=== PATIENT | female | born 1940 | race Caucasian/White ===

== ENCOUNTER 2016-04-29 08:21 | Observation (INO) | payer MEDICARE, BC ==
--- NOTE | ~2016-04-29 | HP ---
Unit #: [id number] #: [id number] Patient: MARIA A GRIFFIN [id number] [facility]. [place], [place] [address] [id number] I MR#: [id number] NAME: MARIA A GRIFFIN. ROOM: 56336 Age: 75 Sex: F Admission Date: 04/29/2016 : 1940 Attending Physician: Lisa Campbell M.D. Primary Care Physician: No Primary Care Physician HISTORY AND PHYSICAL CHIEF COMPLAINT Passing blood. HISTORY OF PRESENT ILLNESS The patient is a 75-year-old female with past medical history of coronary artery disease, hypertension, hyperlipidemia, paroxysmal atrial fibrillation, COPD, lung cancer, hypothyroidism and GERD who presented to the emergency department for evaluation of the above. The patient states that she was in her usual state of health until the morning of admission when she started passing blood. She states that there was no stool. She states that she has had 4 bouts of passing only blood. She also has developed abdominal pain during the course of her evaluation in the emergency department. The pain is in her upper abdomen. She describes it as "dull." It radiates to her back. There are no exacerbating or alleviating factors. She denies any similar pain. In the emergency department initial pulse and blood pressure were 84 and 122/102 respectively. Hemoglobin is 13.1. She was started on octreotide drip. She was also given 80 mg of Protonix followed by a Protonix drip at 8 mg per hour. She is being admitted to [facility] for evaluation and further treatment. PAST MEDICAL HISTORY 1. Admission to [facility] October 13 through October 15, 2012 for chest pain. 2. Coronary artery disease status post coronary artery bypass grafting, followed by Dr. Perez. 3. Hypertension. 4. Hyperlipidemia. 5. History of lung cancer status post radiation. 6. Hypothyroidism. 7. GERD. 8. Echocardiogram March 23, 2012 showed an ejection fraction of 45% to 50% with moderate mitral regurgitation and moderate tricuspid regurgitation. Moderate septal hypokinesis was also noted. This is per the H and P from October 13, 2012. PAST SURGICAL HISTORY 1. Cardiac catheterization October 14, 2012 showed abnormal right-sided pressures with elevated pressures consistent with at least moderate pulmonary hypertension. Ejection fraction of 50% to 55%. Hemodynamically significant single-vessel coronary artery disease with total occlusion of the LAD at the ostium. Internal mammary Unit #: [id number] #: [id number] Patient: MARIA A GRIFFIN artery graft was widely patent. 2. Hysterectomy. 3. Coronary artery bypass grafting. 4. Knee surgery. 5. Cholecystectomy. 6. 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 7. Colonoscopy (January 06, 2013) showed internal and external hemorrhoids; otherwise, no abnormalities to the cecum. SOCIAL HISTORY The patient lives with her . She is a former smoker. There is no alcohol. FAMILY HISTORY Notable for her mother having coronary artery disease. Her father had colon cancer. ALLERGIES Eliquis. HOME MEDICATIONS 1. Aspirin 81 mg daily. 2. Calcium 1,200 mg b.i.d. 3. Amiodarone 100 mg daily. 4. Coreg 3.125 mg daily. 5. Levothyroxine 150 mcg daily. REVIEW OF SYSTEMS A complete review of systems is negative except as indicated in the HPI. The patient states that she has lost 16 pounds over the past 2 months. PHYSICAL EXAMINATION VITAL SIGNS: Temperature is 98.1, pulse 84, respirations 16, blood pressure 122/102, oxygen saturation 100% on room air. GENERAL: The patient is a female who is awake and alert in no acute distress. HEENT: The head is atraumatic. Mucous membranes are moist. NECK: Supple. Trachea is midline. CARDIOVASCULAR: Regular rate and rhythm. RESPIRATORY: Lungs are clear to auscultation bilaterally with no increased work of breathing. ABDOMEN: Soft, nontender with bowel sounds present in all 4 quadrants. EXTREMITIES: Extremities are nontender with no pedal edema. NEUROLOGIC: The patient is awake and alert. She follows commands. PSYCHIATRIC: Mood and affect are normal. The patient is cooperative. SKIN: Skin of examined areas is warm and dry. DIAGNOSTIC TESTS CARDIOVASCULAR: EKG shows normal sinus rhythm with a rate of 66 beats per minute. LABORATORY: Complete blood count notable for hemoglobin of 13.1, hematocrit 40.6. INR is 1.1. Comprehensive metabolic panel is notable for calcium of 8.3. ASSESSMENT 1. The patient is a 75-year-old female with GI bleed. The patient is Unit #: [id number] #: [id number] Patient: MARIA A GRIFFIN currently on a Protonix drip. I have discontinued the octreotide drip. Hemoglobin is 13.1. 2. Epigastric pain. 3. History of coronary artery disease. 4. Hypertension. 5. Hyperlipidemia. 6. Paroxysmal atrial fibrillation, maintained on Coreg and amiodarone. 7. COPD. 8. History of lung cancer status post radiation. 9. Hypothyroidism. 10. GERD. 11. Former smoker. PLAN 1. Admit to intermediate level for observation. 2. NPO for possible endoscopy. 3. Continue Protonix drip at 8 mg per hour. 4. Hemoglobin and hematocrit q.6 hours. Will plan to transfuse for hemoglobin less than 8 due to history of coronary artery disease. 5. Serial cardiac enzymes. 6. Hold aspirin. 7. SCDs. 8. Zofran p.r.n. 9. Morphine p.r.n. 10. Consult Dr. Gambino regarding GI bleed. 11. Repeat labs in the morning. 12. SCDs for DVT prophylaxis. 13. Additional workup and consultants based on above. Dictated by Alan Wong/sabino TD: 04/29/2016 12:04 JOB #: [id number] HISTORY AND PHYSICAL X Lisa Campbell MD HISTORY AND PHYSICAL
--- NOTE | ~2016-04-29 | CO ---
Unit #: [id number] #: [id number] Patient: MARIA A GRIFFIN [id number] [address] [id number] E MR#: [id number] NAME: MARIA A GRIFFIN. ROOM: Age: 75 Sex: F Admission Date: 04/29/2016 : 1940 Attending Physician: Lissett Garcia M.D. Primary Care Physician: No Primary Care Physician CONSULTATION REPORT REASON FOR CONSULTATION GI bleed. HISTORY OF PRESENT ILLNESS The patient states she was in her usual state of health until around 5:30 this morning when she was lying on her couch and felt like she was having diarrhea. She subsequently got up to use the restroom and "filled the bowl with" blood and blood clots and subsequently called her daughter to bring her to the ER. Upon workup in the ER she was started on octreotide and Protonix drips. Hemoglobin was found to be normal at 13. The patient does report some nausea. Denies vomiting. Denies abdominal pain. Denies any recent sick contacts. PAST MEDICAL HISTORY 1. Coronary artery disease status post CABG in 2002. 2. 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 3. Asthma. 4. GERD. 5. Hypothyroidism. 6. Hysterectomy. 7. Foot surgery. 8. Back surgery x3. 9. Cholecystectomy. 10. Colonoscopy in December 2012, which showed both internal and external hemorrhoids; otherwise, was normal. 11. EGD in July of 2013, which showed [id number] chronic erosive gastritis. ALLERGIES Eliquis. HOME MEDICATIONS Coreg, amiodarone, levothyroxine, baby aspirin, calcium with vitamin D. SOCIAL HISTORY The patient is a reformed smoker. Denies alcohol or illicit drugs. Lives at home with her who actually recently suffered stroke, for which she is his primary caregiver. REVIEW OF SYSTEMS A complete 10-point review of systems was completed and negative except as mentioned in the HPI. Unit #: [id number] #: [id number] Patient: MARIA A GRIFFIN PHYSICAL EXAMINATION GENERAL: The patient is a pleasant 75-year-old female currently in no acute distress. VITAL SIGNS: Temperature is 97.4, pulse 66, respirations 16, blood pressure 97/67. HEENT: PERRLA. NECK: Supple. CARDIAC: S1, S2. LUNGS: Clear to auscultation. ABDOMEN: Soft, rounded, nontender, nondistended. Positive bowel sounds. NEUROLOGIC: The patient is alert, awake and oriented x3. DIAGNOSTIC STUDIES LABORATORY DATA: Chemistry is completely normal. White count 6.9, hemoglobin 13.1, hematocrit 40.6, platelets 246. ASSESSMENT AND PLAN 1. GI bleed. Will continue Protonix drip for now. Watch hemoglobin and hematocrit and transfuse as needed. Will plan EGD today to rule out peptic ulcer disease versus AVM versus others. Will likely need colonoscopy in the coming days. Further recommendations to follow. 2. History of coronary artery disease status post CABG in 2002. 3. History of lung cancer status post chemotherapy and radiation. Thank you for this interesting consult. We will continue to follow along. Dictated by... Wilbert Mora/sabino TD: 04/29/2016 10:43 JOB #: [id number] CONSULTATION REPORT X X CONSULTATION REPORT
--- NOTE | ~2016-04-29 | OR ---
Unit #: [id number] #: [id number] Patient: MARIA A GRIFFIN [id number] [facility]. [place], [place] [address] [id number] Sonu MR#: [id number] NAME: MARIA A GRIFFIN ROOM: [facility] Date of Procedure: 04/30/2016 Admission Date: 04/29/2016 Surgeon: Edy Gambino M.D. : 1940 Attending Physician: Iliana Marie M.D. OPERATIVE REPORT JOB NOTE: CC: PRIMARY CARE PHYSICIAN. PROCEDURE PERFORMED Colonoscopy with argon plasma coagulation of arteriovenous malformations in cecum. INDICATIONS FOR PROCEDURE The patient with severe GI bleeding and anemia of acute blood loss, undergoing colonoscopy for evaluation. MEDICATIONS Monitored anesthesia. POSTOPERATIVE FINDINGS 1. Multiple at least 5 AVMs seen in the cecum, cauterized using APC. There was active oozing seen from these. 2. A few small polyps, 1 in transverse, 3 in rectum were seen. There were all about 5 mm, they were left alone at this time. 3. Few diverticula were seen. 4. No internal hemorrhoids. PLAN Watch for any further bleeding. Watch H and H. continue with supportive care. DESCRIPTION OF PROCEDURE The patient was explained of the procedure, risks, and benefits along with risks and benefits of anesthesia. She was brought to the endoscopy room. Rectal exam was done, which was normal. Colonoscope was lubricated, passed up the rectum, advanced under direct vision all the way to the cecum. There were pools of blood in different places. After lavaging and extensive cleaning, several small AVM seen in the cecum. They started oozing while we were there. They were cauterized using APC. No active bleeding was seen after the cauterization. Scope was gently pulled out. Several small polyps were seen as described. There were not taken out at this time, given the active bleeding. I retroflexed in the rectum, no hemorrhoids noted. Scope was gently pulled out. She tolerated it well. No major complications were seen. Dictated by... Edy Gambino M.D. Unit #: [id number] #: [id number] Patient: MARIA A GRIFFIN TERRANCE/leighton TD: 04/30/2016 09:45 JOB #: [id number] OPERATIVE REPORT X Edy Gambino MD PROCEDURE OPERATIVE NOTE
--- NOTE | ~2016-04-29 | DS ---
Unit #: [id number] #: [id number] Patient: AMRIA A GRIFFIN [id number] [place], [place] [address] [id number] I MR#: [id number] NAME: MARIA A GRIFFIN. ROOM: [facility] Age: 75 Sex: F Admission Date: 04/29/2016 : 1940 Discharge Date: 05/01/2016 Attending Physician: Iliana Marie M.D. Primary Care Physician: [place] Primary Care Physician DISCHARGE SUMMARY DIAGNOSIS ON ADMISSION Gastrointestinal bleeding. DIAGNOSES ON DISCHARGE 1. Acute lower gastrointestinal bleeding, secondary to arteriovenous malformation, resolved. 2. 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 3. Colonic polyps. 4. Anemia, secondary to acute blood loss. 5. Hypertension. 6. Chronic obstructive pulmonary disease. 7. Hypothyroidism. 8. Paroxysmal atrial fibrillation. 9. Gastroesophageal reflux disease. 10. History of lung cancer, status post radiation. CONSULTATION Dr. Gambino in GI consultation. PROCEDURE The patient had a colonoscopy done which revealed multiple, at least five, AVMs in cecum which were cauterized. There was active oozing. The patient had a few small polyps also. There were a few diverticula seen. DIAGNOSTIC STUDIES LABORATORY: The patient's creatinine 0.5, sodium 139, potassium 3.7. WBC 4.9, hemoglobin 8.2, platelet count 178,000. HOSPITAL COURSE A 75-year-old patient was admitted to the hospital with GI bleeding. Details are as per admission H and P. The patient underwent a colonoscopy with findings as above. The patient's bleeding has resolved. The patient is very anxious and wants to go home today. Therefore, we will discharge her with followup with Dr. Gambino on outpatient basis. RECOMMENDATIONS ON DISCHARGE Condition is stable. Activity is as tolerated. MEDICATIONS 1. Tylenol 650 mg p.o. q.6 hours p.r.n. 2. Amiodarone 100 mg p.o. daily. 3. Coreg 3.125 mg p.o. daily. 4. Calcium with vitamin D 500 mg p.o. t.i.d. Unit #: [id number] #: [id number] Patient: MARIA A GRIFFIN 5. Synthroid 150 mcg p.o. daily. 6. Protonix 40 mg p.o. daily. 7. Iron sulfate 324/5 mg p.o. daily with meals. FOLLOWUP 1. The patient is advised to follow up with primary care physician in one week and have a CBC and BMP done. 2. The patient is advised to follow up with Dr. Gambino as recommended in two to three weeks. The plan has been discussed with patient's family as well and they have shown complete understanding. The patient is advised to call primary care physician or go to ER if her bleeding recurs. Dictated by... Alan Kumar/jian TD: 05/01/2016 16:10 JOB #: [id number] DISCHARGE SUMMARY X Iliana Marie MD X DISCHARGE SUMMARY
--- NOTE | ~2016-04-29 | EKG ---
PATIENT: MARIA A GRIFFIN UNIT #: [id number] Ventricular Rate: 66 BPM Atrial Rate: 66 BPM P-R Interval: 162 ms QRS Duration: 126 ms Q-T Interval: 490 ms QTC Calculation(Bezet): 513 ms P Grand Ledge: 69 degrees Calculated R Grand [place]edge: -29 degrees Calculated T Grand Ledge: 29 degrees Diagnosis Line: Normal sinus rhythm Diagnosis Line: Right bundle branch block Diagnosis Line: Moderate voltage criteria for LVH, may be normal Diagnosis Line: variant Diagnosis Line: Abnormal ECG Diagnosis Line: When compared with ECG of 08-FEB-2014 15:48, Diagnosis Line: Premature supraventricular complexes are no longer Diagnosis Line: Present Diagnosis Line: Vent. rate has decreased BY 37 BPM Diagnosis Line: T wave inversion no longer evident in Lateral Diagnosis Line: leads Diagnosis Line: Confirmed by ADELE ROLAND MD ([id number]) on 04/30/2016 Diagnosis Line: 7:29:49 PM INTERPRETING MD: ASUNCION CALLE
[~2016-04-29 08:21] MED LIST: ACETAMINOPHEN PO; ACID REDUCER OTC; ACID REDUCER20 MG PO; ASPIRIN PO; ASPIRIN81 M2 PO; ATENOLOL; CALCIUM + D 6001 TA1 PO; CALCIUM 500 + D1 TAB PO; CARVEDILOL12.5 MG PO; CIPRO PO; CORDARONE200 M1 PO; COREG PO; COREG3.125 MG PO; DILTIAZEM 24HR180 M2 PO; ELIQUIS5 MG PO; FAMVIR500 MG PO; FLEXERIL PO; FUROSEMIDE40 MG PO; LASIX PO; LEVOTHYROXINE150 MC1 PO; LISINOPRIL10 MG PO; LOPID600 MG; LORTAB 7.5-5001 TAB PO; MOBIC PO; NEURONTIN300 MG PO; OXYCONTIN PO; OYSTER SHELL C500 MG PO; PHENERGAN PO; PRAVASTATIN SOD40 MG PO; PREVACID 24HR15 MG PO; PRILOSEC; REGLAN; ROBAXIN500 MG PO; SYNTHROID PO; SYNTHROID0.1 MG PO; VICODIN 5/500 T1 TAB PO; VICODIN PO; VITAMIN D2000 UNI1 PO; ZOCOR20 MG PO
[2016-04-29 08:27] LABS: BASOPHIL% 0.2 % (0-2.5); EOSINOPHIL# 0.1 X10e3 (0-0.7); EOSINOPHIL% 0.9 % (0.0-7.0); HEMATOCRIT 40.6 % (35.0-45.0); HEMOGLOBIN 13.1 gm/dL (12.0-16.0); LYMPHOCYTE# 0.7 X10e3 (1.0-3.5); LYMPHOCYTE% 10.8 % (17.0-45.0); MEAN CORPUSCULAR HEMOGLOBIN 29.3 PG (28-34); MEAN CORPUSCULAR HGB CONC 32.2 g/dL (30-36); MEAN PLATELET VOLUME 8.8 FL (6.5-11.5); MONOCYTE# 0.5 X10e3 (0-1.0); MONOCYTE% 6.8 % (3.0-12.0); NEUTROPHIL# 5.6 X10e3 (1.5-7.1); NEUTROPHIL% 81.3 % (40-75); PLATELET COUNT 246 X10e3 (140-420); RED BLOOD COUNT 4.46 X10e (3.90-5.30); WHITE BLOOD COUNT 6.9 X10e3 (4.0-10.5)
[2016-04-29 08:32] LABS: DIFF IND NO
[2016-04-29 08:40] LABS: INR 1.1; PARTIAL THROMBOPLASTIN TIME 25.3 SECONDS (23.5-31.3); PROTHROMBIN TIME (PATIENT) 11.4 SECONDS (9.6-11.5)
[2016-04-29] MEDS ORDERED: LEVOTHYROXINE150 MCG PO (08:54)
[2016-04-29] MEDS ORDERED: AMIODARONE PO (08:54)
[2016-04-29] MEDS ORDERED: BAYER CHEWABLE81 MG PO (08:54)
[2016-04-29] MEDS ORDERED: CARVEDILOL3.125 MG PO (08:54)
[2016-04-29 08:55] LABS: ALBUMIN SERUM 3.9 g/dL (3.5-5.0); ALKALINE PHOSPHATASE 56 U/L (32-92); ALT (SGPT) 21 U/L (10-40); AST (SGOT) 21 U/L (10-42); BILIRUBIN, DIRECT 0.2 mg/dL (0.0-0.2); BILIRUBIN,INDIRECT 0.4 mg/dL (0.0-0.9); BILIRUBIN,TOTAL 0.6 mg/dL (0.2-2.0); BLOOD UREA NITROGEN 21 mg/dL (9-23); BUN/CREATININE RATIO 26.25; CALCIUM SERUM 8.3 mg/dL (8.4-10.2); CARBON DIOXIDE 27 mmol/L (22-31); CHLORIDE 110 mmol/L (100-111); CREATININE SERUM 0.8 mg/dL (0.6-1.4); GLOM FILT RATE Estimated ABOVE60 mL/min (>60); GLUCOSE FASTING 105 mg/dL (70-110); POTASSIUM 4.4 mmol/L (3.5-5.1); PROTEIN TOTAL SERUM 6.7 g/dL (6.0-8.3); SODIUM 140 mmol/L (135-145)
[2016-04-29] MEDS ORDERED: CALCIUM + D 6001 TA1 PO (08:55)
[2016-04-29 11:44] LABS: HEMATOCRIT 36.5 % (35.0-45.0); HEMOGLOBIN 11.6 gm/dL (12.0-16.0)
[2016-04-29 12:41] LABS: %MB 4.2 % (0.0-4.0); MB 5.6 ng/ml
[2016-04-29 20:05] LABS: HEMATOCRIT 31.4 % (35.0-45.0); HEMOGLOBIN 10.1 gm/dL (12.0-16.0)
[2016-04-29 20:47] LABS: %MB 4.6 % (0.0-4.0); MB 4.6 ng/ml
[2016-04-29 23:29] LABS: HEMATOCRIT 36.5 % (35.0-45.0); HEMOGLOBIN 11.6 gm/dL (12.0-16.0)
[2016-04-30 00:15] LABS: %MB 4.4 % (0.0-4.0); MB 7.3 ng/ml
[2016-04-30 05:30] LABS: HEMATOCRIT 28.9 % (35.0-45.0); MEAN CELL VOLUME 90.2 FL (83-96); MEAN CORPUSCULAR HEMOGLOBIN 29.1 PG (28-34); MEAN CORPUSCULAR HGB CONC 32.2 g/dL (30-36); MEAN PLATELET VOLUME 8.2 FL (6.5-11.5); RED BLOOD COUNT 3.2 X10e (3.90-5.30); RED CELL DISTRIBUTION WIDTH 16.1 % (11.0-15.5); WHITE BLOOD COUNT 5.6 X10e3 (4.0-10.5)
[2016-04-30 05:32] LABS: HEMOGLOBIN 9.3 gm/dL (12.0-16.0)
[2016-04-30 05:47] LABS: INR 1.1
[2016-04-30 06:46] LABS: ALBUMIN SERUM 3.2 g/dL (3.5-5.0); ALKALINE PHOSPHATASE 44 U/L (32-92); ALT (SGPT) 18 U/L (10-40); AST (SGOT) 19 U/L (10-42); BILIRUBIN,TOTAL 0.6 mg/dL (0.2-2.0); BLOOD UREA NITROGEN 16 mg/dL (9-23); CALCIUM SERUM 7.6 mg/dL (8.4-10.2); CARBON DIOXIDE 25 mmol/L (22-31); CHLORIDE 108 mmol/L (100-111); CREATININE SERUM 0.5 mg/dL (0.6-1.4); GLOM FILT RATE Estimated ABOVE60 mL/min (>60); GLUCOSE FASTING 96 mg/dL (70-110); POTASSIUM 4.3 mmol/L (3.5-5.1); PROTEIN TOTAL SERUM 5.1 g/dL (6.0-8.3); SODIUM 139 mmol/L (135-145)
[2016-04-30 11:46] LABS: HEMATOCRIT 28.3 % (35.0-45.0)
[2016-05-01 07:03] LABS: HEMATOCRIT 25.4 % (35.0-45.0); HEMOGLOBIN 8.2 gm/dL (12.0-16.0); MEAN CELL VOLUME 91.1 FL (83-96); MEAN CORPUSCULAR HEMOGLOBIN 29.3 PG (28-34); MEAN CORPUSCULAR HGB CONC 32.1 g/dL (30-36); MEAN PLATELET VOLUME 8.6 FL (6.5-11.5); RED BLOOD COUNT 2.79 X10e (3.90-5.30); RED CELL DISTRIBUTION WIDTH 16.3 % (11.0-15.5); WHITE BLOOD COUNT 4.9 X10e3 (4.0-10.5)
[2016-05-01 08:14] LABS: ALKALINE PHOSPHATASE 46 U/L (32-92); ALT (SGPT) 13 U/L (10-40); AST (SGOT) 17 U/L (10-42); BILIRUBIN,TOTAL 0.4 mg/dL (0.2-2.0); BLOOD UREA NITROGEN 7 mg/dL (9-23); CALCIUM SERUM 7.3 mg/dL (8.4-10.2); CARBON DIOXIDE 22 mmol/L (22-31); CHLORIDE 110 mmol/L (100-111); CREATININE SERUM 0.5 mg/dL (0.6-1.4); GLOM FILT RATE Estimated ABOVE60 mL/min (>60); GLUCOSE FASTING 90 mg/dL (70-110); POTASSIUM 3.7 mmol/L (3.5-5.1); PROTEIN TOTAL SERUM 4.9 g/dL (6.0-8.3); SODIUM 139 mmol/L (135-145)
[2016-05-01] MEDS ORDERED: ACETAMINOPHEN650 M3 PO (12:29)
[2016-05-01] MEDS ORDERED: PROTONIX PO (12:30)
[2016-05-01] MEDS ORDERED: FERROUS SULFATE PO (12:30)
[2016-05-01] MEDS ORDERED: ASPIRIN1 GM PO (14:50)
[2016-05-01] MEDS ORDERED: ASPIRIN81 MG PO (14:51)
== END 2016-05-01 15:24 | disposition home or self-care (01) ==
LOC: CED 08:21 → CEDOF 09:55 → C3A PCU 12:19
PROVIDERS: Emergency Medicine; Family Medicine; Internal Medicine
DX: K55.21 Angiodysplasia of colon with hemorrhage (principal); D12.3 Benign neoplasm of transverse colon; K62.1 Rectal polyp; K57.30 Diverticulosis of large intestine without perforation or abscess without bleeding; D62 Acute posthemorrhagic anemia; K29.50 Unspecified chronic gastritis without bleeding; I25.10 Atherosclerotic heart disease of native coronary artery without angina pectoris; I10 Essential (primary) hypertension; E78.5 Hyperlipidemia, unspecified; I48.0 Paroxysmal atrial fibrillation; Z85.118 Personal history of other malignant neoplasm of bronchus and lung; Z92.3 Personal history of irradiation; E03.9 Hypothyroidism, unspecified; K21.9 Gastro-esophageal reflux disease without esophagitis; J44.9 Chronic obstructive pulmonary disease, unspecified; Z87.891 Personal history of nicotine dependence; Z95.1 Presence of aortocoronary bypass graft
CPT/HCPCS: 36415; 80048; 80053; 80076; 82550; 82553; 84484; 85014; 85018; 85025; 85027; 85610; 85730; 86850; 86900; 86901; 86923; 88305; 88312; 93005; 94760; 96365; 96366; 96375; 96376; 99285; C9113; G0378; J2270; J2354; J2405; J2765

== ENCOUNTER → 2016-05-17 | Day surgery (SDC) | payer MEDICARE, BC ==
[~2016-05-17] MED LIST changes: +ACETAMINOPHEN650 M3 PO; +AMIODARONE PO; +ASPIRIN1 GM PO; +ASPIRIN81 MG PO; +BAYER CHEWABLE81 MG PO; +CARVEDILOL3.125 MG PO; +FERROUS SULFATE PO; +LEVOTHYROXINE150 MCG PO; +PROTONIX PO
--- NOTE | ~2016-05-17 | OR ---
Unit #: [id number] #: [id number] Patient: MARIA A GRIFFIN [id number] [facility]. [place], [place] [address] [id number] O MR#: [id number] NAME: MARIA A GRIFFIN ROOM: Date of Procedure: 05/17/2016 Admission Date: 05/17/2016 Surgeon: Edy Gambino M.D. : 1940 Attending Physician: Edy Gambino M.D. Referring Physician: Edy Gambino M.D. Primary Care Physician: Clement Cheng M.D. OPERATIVE REPORT JOB NOTE: CC: PRIMARY CARE PHYSICIAN PROCEDURE PERFORMED Colonoscopy with snare polypectomy. INDICATIONS FOR PROCEDURE The patient with persistent blood in the stool. Recently, she was in the hospital with acute severe lower GI bleeding, where multiple AVMs were cauterized. She was brought in for a repeat exam to look for any further AVMs. She also had at that time several small polyps that were left alone and needs polypectomy. MEDICATIONS Monitored anesthesia. POSTOPERATIVE FINDINGS 1. Cecum shows nice healing of the previous lesions. No active lesions were seen at this time. 2. No active bleeding was seen. 3. Three polyps, 5 to 6 mm each in the rectum, snared and sent for histopathology. 4. Internal hemorrhoids very small. PLAN Follow up on the pathology report. The patient to call back for any recurrent bleeding. DESCRIPTION OF PROCEDURE The patient was explained of the procedure, risks, and benefits along with the risks and benefits of anesthesia. She was brought to the endoscopy room. Propofol anesthesia was given. Rectal exam was done, which was normal. Colonoscope was lubricated, passed up the rectum, advanced under direct vision all the way to the cecum. Cecum was identified by ileocecal valve and appendiceal orifice. No AVMs or active bleeding was seen in the cecum. I then started to pull the scope out carefully looking. Several small rectal polyps were removed using snare polypectomy. I retroflexed in the rectum, small internal hemorrhoids. No signs of bleeding were seen. Gently, the scope was pulled out. She tolerated it well. No major complications were seen. Dictated by... Unit #: [id number] #: [id number] Patient: MARIA A GRIFFIN Alan FriasJ/leighton TD: 05/18/2016 05:22 JOB #: [id number] CC: Jimmy Wild M.D. OPERATIVE REPORT Page 1 of 1 X Edy Gambino MD X PROCEDURE OPERATIVE NOTE
--- NOTE | ~2016-05-17 | OR ---
Unit #: [id number] #: [id number] Patient: MARIA A GRIFFIN [id number] [address] [id number] O MR#: [id number] NAME: MARIA A GRIFFIN ROOM: Date of Procedure: 05/30/2016 Admission Date: 05/17/2016 Surgeon: Edy Gambino M.D. : 1940 Attending Physician: Edy Gambino M.D. Referring Physician: Edy Gambino M.D. Primary Care Physician: Clement Cheng M.D. OPERATIVE REPORT PROCEDURES PERFORMED Esophagogastroduodenoscopy with biopsy. INDICATIONS FOR PROCEDURE The patient with acute GI bleeding. MEDICATIONS Monitored anesthesia. POSTOPERATIVE FINDINGS 1. Mild gastritis, biopsies taken. 2. Normal esophagus. 3. Duodenal diverticulum. 4. . PLAN Further investigations and colonoscopy. Continue to watch for bleeding. DESCRIPTION OF PROCEDURE The patient was explained of the procedure, risks, and benefits along with risks and benefits of anesthesia. She was brought to the endoscopy room. Propofol anesthesia was given. Bite block was placed. The scope was passed down the mouth into the esophagus, stomach, duodenum, and distal duodenum. Findings as described. Biopsies taken. Gently, the scope was pulled out. She tolerated it well. Dictated by... Alan Frias/nithinl TD: 05/31/2016 01:56 JOB #: [id number] Unit #: [id number] #: [id number] Patient: MARIA A GRIFFIN OPERATIVE REPORT Page 1 of 1 X Edy Gambino MD X PROCEDURE OPERATIVE NOTE
== END | disposition home or self-care (01) ==
LOC: COPS 13:34
DX: K62.1 Rectal polyp (principal); K64.8 Other hemorrhoids; E03.9 Hypothyroidism, unspecified; I34.1 Nonrheumatic mitral (valve) prolapse; J44.9 Chronic obstructive pulmonary disease, unspecified; I48.91 Unspecified atrial fibrillation; Z90.710 Acquired absence of both cervix and uterus; Z95.1 Presence of aortocoronary bypass graft; Z98.41 Cataract extraction status, right eye; Z98.42 Cataract extraction status, left eye; Z88.8 Allergy status to other drugs, medicaments and biological substances; Z85.118 Personal history of other malignant neoplasm of bronchus and lung; Z87.19 Personal history of other diseases of the digestive system
CPT/HCPCS: 88305